=== PATIENT | female | born 1955 | race Caucasian/White ===

== ENCOUNTER 2021-05-18 12:56 | Emergency (ER) | payer OTHER ==
[2021-05-18 13:57] LABS: HEMOGLOBIN 13.6 gm/dl (12.3-15.3); RED BLOOD COUNT 4.59 M/UL (4.00-5.10)
[2021-05-18 14:22] LABS: BUN/CREATININE RATIO 19 (0-10)
[2021-05-18] MEDS ORDERED: IBUPROFEN400 MG PO (16:36)
[2021-05-18] MEDS ORDERED: BACTROBAN OINT22 GM EXT (16:36)
== END 2021-05-18 23:15 | disposition home or self-care (01) ==
LOC: ER1 12:56
PROVIDERS: Emergency Medicine
DX: S01.81XA Laceration without foreign body of other part of head, initial encounter (principal); S13.4XXA Sprain of ligaments of cervical spine, initial encounter; S23.3XXA Sprain of ligaments of thoracic spine, initial encounter; S33.5XXA Sprain of ligaments of lumbar spine, initial encounter; S60.222A Contusion of left hand, initial encounter; S80.01XA Contusion of right knee, initial encounter; S30.1XXA Contusion of abdominal wall, initial encounter; S20.214A Contusion of middle front wall of thorax, initial encounter; V49.9XXA Car occupant (driver) (passenger) injured in unspecified traffic accident, initial encounter
CPT/HCPCS: 70450; 71045; 71260; 72125; 73130; 73564; 80053; 82550; 82553; 83874; 84484; 85025; 90471; 90715; 93005; 96374; 96375; 96376; 99284; J2270; J2405; Q9967